=== PATIENT | male | born 1960 | race Caucasian/White ===

== ENCOUNTER 2023-02-17 20:11 | Emergency (ER) | payer OTHER ==
[~2023-02-17] VITALS: Ht 172.7 cm; Wt 80.0 kg
[2023-02-17 20:17] VITALS: BP 165/106; RESP 18; TEMP 97.8; O2SAT 99
[2023-02-17 20:22] VITALS: PULSE 98
== END 2023-02-18 00:09 | disposition left against medical advice (07) ==
LOC: ER 20:11
DX: Z53.21 Procedure and treatment not carried out due to patient leaving prior to being seen by health care provider (principal)
CPT/HCPCS: 99281